=== PATIENT | male | born 1975 | race Caucasian/White ===

== ENCOUNTER 2023-11-02 04:20 | Day surgery (SDC) | payer OTHER ==
[2023-10-30 15:23] VITALS: BMI 39.0
[2023-11-02] MEDS ORDERED: LIDOCAINE HCL/PF 2% SDV 5ML VIAL ONE (12:44)
[2023-11-02] MEDS ORDERED: PROPOFOL 20 ML ONE (12:45)
[2023-11-02] MEDS ORDERED: MIDAZOLAM HCL 2 MG/2 ML SINGLE DOSE VIAL ONE (12:45)
[2023-11-02] MEDS ORDERED: BACITRACIN ZINC 15 GM TUBE TOPICAL OINTMENT ONE (13:15)
[2023-11-02] MEDS ORDERED: LIDOCAINE HCL 1%, 10 MG/ML (20ML VIAL) ONE (13:15)
[2023-11-02] MEDS ORDERED: BUPIVACAINE HCL/PF 0.5% (5MG/ML) 10 ML VIAL ONE (13:15)
[2023-11-02] MEDS ORDERED: ceFAZolin SODIUM 1 GM VIAL ONE (14:14)
[2023-11-02] MEDS ORDERED: DEXAMETHASONE SOD PHOSPHATE 4 MG/1 ML VIAL ONE (14:14)
[2023-11-02] MEDS ORDERED: DEXTROSE 5%-0.45% SALINE 1,000 ML IV SCH (14:15)
[2023-11-02] MEDS ORDERED: IBUPROFEN 800 MG/8 ML IJ IVPB SCH (14:15)
[2023-11-02] MEDS: LIDOCAINE HCL 1%, 10 MG/ML (20ML VIAL) NR ONE ×2 (14:21)
[2023-11-02] MEDS ORDERED: KETOROLAC TROMETHAMINE 30 MG/1 ML VIAL ONE (14:29)
[2023-11-02] MEDS ORDERED: ONDANSETRON 4 MG/2 ML VIAL ONE (14:29)
[2023-11-02] MEDS ORDERED: ONDANSETRON 4 MG/2 ML VIAL IVPUSH PRN (14:53)
[2023-11-02] MEDS ORDERED: PROMETHAZINE HCL 25 MG/1 ML VIAL IVPB PRN (14:53)
[2023-11-02] MEDS ORDERED: oxyCODONE HCL 5 MG TABLET PO PRN ×2 (14:53)
[2023-11-02] MEDS ORDERED: ACETAMINOPHEN INJECTION 100 ML IVPB ONE (15:11)
[2023-11-02] MEDS: ACETAMINOPHEN 1000 MG/100 ML BAG IVPB ONE ×2 (15:14→15:29)
[2023-11-02] MEDS: LACTATED RINGERS SOLUTION 1,000 ML IV SCH (16:25)
[2023-11-02 16:37] VITALS: TEMP 97.6
[2023-11-02 17:22] VITALS: BP 127/62; PULSE 66; RESP 18
== END 2023-11-02 17:38 | disposition home or self-care (01) ==
LOC: JASU-SURG 04:20
PROVIDERS: ATTEND Urology
PROC: 0HBAXZX Excision of Inguinal Skin, External Approach, Diagnostic (ICD-10-PCS; principal; 2023-11-02 13:30)
DX: A63.0 Anogenital (venereal) warts (principal)
CPT/HCPCS: 82962; 94760; J0131